=== PATIENT | male | born 1995 | race Caucasian/White ===

== ENCOUNTER 2017-10-21 12:19 | Emergency (ER) | payer OTHER ==
[~2017-10-21] VITALS: Ht 195.6 cm; Wt 120.2 kg
[~2017-10-21 12:19] MED LIST: PENICILLIN V P500 MG PO
[2017-10-21] MEDS ORDERED: LIDOCAINE HCL100 ML MT (12:44)
[2017-10-21] MEDS ORDERED: ACYCLOVIR400 MG PO (12:44)
== END 2017-10-21 13:16 | disposition home or self-care (01) ==
LOC: ED 12:19
DX: J03.80 Acute tonsillitis due to other specified organisms (principal); B97.89 Other viral agents as the cause of diseases classified elsewhere
CPT/HCPCS: 99282